=== PATIENT | female | born 1990 | race Caucasian/White ===

== ENCOUNTER → 2016-05-13 | Outpatient (CLI) | payer OTHER ==
[2016-05-13 15:14] VITALS: BP 133/84
== END ==
LOC: MHUC 10:44
PROVIDERS: ATTEND Physician Assistant
DX: B02.9 Zoster without complications (principal)
CPT/HCPCS: 99213

== ENCOUNTER → 2016-07-08 | Outpatient (CLI) | payer OTHER ==
[~2016-07-08] MED LIST: ACYC800T PO; CEFD300C PO; METH4TAB27 PO; PRED20TA PO
[2016-07-08 10:44] VITALS: BP 126/80
--- NOTE | 2016-07-08 10:44 | Urgent Care T Sheet Gen (E) ---
Intake General Temperature (Fahrenheit): 97.7 Pulse: 80 Blood Pressure Systolic: 126 Blood Pressure Diastolic: 80 Respirations: 18 SPO2: 97 Description of Symptoms Patient presents with R ear pain which started last night. Has had a cold with nasal congestion for over a week. No fever. No meds to treat her symptoms. Nurse at work looked in the R ear and said it was red. Also notes bilateral palmar wrist pain. Started last night as well. No injury. No numbness in the wrist or hand. History of Present Illness Allergies: Coded Allergies: No Known Drug Allergies (Unverified , 11/23/14) Home Meds Active Scripts Prednisone 20 Mg [id number] Mg PO DAILY #10 TAB Take 40mg daily x 3 days then take 20mg daily x 4 days Prov:MOE SANTIAGO 05/13/16 Acyclovir 800 Mg [id number] Mg PO 5x #35 TAB 800mg 5 times daily x 7 days Prov:MOE SANTIAGO 05/13/16 Respiratory Constitutional Symptoms: No syptoms reported EENTM: Ear pain Nose Congestion Respiratory: No symptoms reported Cardiovascular: No symptoms reported Gastrointestinal/Abdominal: No symptoms reported Musculoskeletal: Joint pain Muscle pain All Other Systems Reviewed Remaining Systems: All other systems reviewed with negative findings Physical Exam Physical Exam General Appearance: WD/WN No apparent distress Eyes, Ears, Nose, Throat Ex: Pharynx normal TM abnormal (R) (red, bulging) Other (red, swollen nasal turbinates with thick, clear drainage) Neck Exam: SuppleNo Lymphadenopathy Respiratory Exam: Lungs clear Normal breath sounds Cardiovascular Exam: Regular rate, rhythm Extremity Exam: Full range of motion Other (examination of the wrists reveal diffuse tenderness along the palmar aspect. negative tinels over bilateral carpal tunnels. negative bilateral dandy's test.) Neurologic/Psychiatric Exam: No sensory deficits (normal sensation in bilateral wrists and hands) Departure Urgent Care Impression Impression: Primary Impression: Otitis media Qualified Code: H66.001 - Acute suppurative otitis media without spontaneous rupture of ear drum, right ear Additional Impression: Wrist pain, acute Qualified Code: M25.539 - Pain in unspecified wrist Departure Disposition: 01 HOME OR SELF-CARE Condition: Stable Referrals: ALESSANDRO MARROQUIN MD (PCP) Additional Instructions: I have started the patient on Omnicef for treatment of the ROM. I have also started her on Medrol dose pack. This should help with the nasal congestion and the bilateral wrist pain. No NSAIDs while on steroid Unsure the etiology of the bilateral wrist pain, most likely overuse. She doesn 't have any signs or symptoms of CTS or de Quervain tenosynovitis. Return as needed or f/u with PCP Patient understands DC instructions. All questions were answered. Scripts Methylprednisolone (Medrol Dosepack)21 Tab/Pkt Tablet6 Tab PO DAILY Inflammation #1 PKT Ref 0 6 tabs po on day 1 then decrease by 1 tab daily until packet is gone Prov:MOE SANTIAGO 07/08/16 Cefdinir 300 Mg [id number] Mg PO BID #14 CAP Prov:MOE SANTIAGO 07/08/16 End of report . MOE SANTIAGO Jul 08, 2016 10:44
== END ==
LOC: MHUC 10:10
PROVIDERS: ATTEND Physician Assistant
DX: H66.001 Acute suppurative otitis media without spontaneous rupture of ear drum, right ear (principal); M25.531 Pain in right wrist; M25.532 Pain in left wrist
CPT/HCPCS: 99213